=== PATIENT | female | born 1990 | race Caucasian/White ===

== ENCOUNTER 2025-04-13 04:46 | Outpatient (CLI) | payer MEDICAID, SELFPAY ==
[2025-04-13 11:34] LABS: Abs Immature Grans 0.01 10^3/uL (0.0-0.06); HCT 42.3 % (36.0-46.0); HGB 13.7 g/dL (11.2-15.7); Immature Grans % 0.2 %; MCH 28.4 pg (27.0-33.0); MCHC 32.4 % (32.0-36.0); MCV 88 fL (80-95); MPV 9.3 fL (8.0-11.0); Platelet Count 316 10^3/uL (130-400); RBC 4.82 10^6/uL (3.93-5.22); RDW 11.9 % (11.7-14.6); RDW-SD 38.2 fL; WBC 5.46 10^3/uL (4.4-10.8)
[2025-04-13 11:45] LABS: Hemoglobin A1C 5.1 % (<5.7)
[2025-04-13 12:16] LABS: ALT 25 U/L (14-59); AST 32 U/L (15-37); Albumin 4.1 g/dL (3.4-5.0); Alkaline Phosphatase 74 U/L (46-116); Anion Gap 6.4 mmol/L (3-11); BUN 21 mg/dL (7-18); Bilirubin, Total 0.6 mg/dL (0.2-1.0); CO2 32.6 mmol/L (21.0-32.0); Calcium 9.2 mg/dL (8.5-10.1); Calculated LDL 121 mg/dL (<100); Chloride 101 mmol/L (98-107); Cholesterol 212 mg/dL (<200); Estimated GFR 68.04 (mL/min/1.73m2); Glucose 85 mg/dL (74-106); HDL Cholesterol 78 mg/dL (>or=50); Potassium 4.4 mmol/L (3.5-5.1); Sodium 140 mmol/L (136-145); TSH 1.41 uIU/mL (0.36-3.74); Total Protein 7.9 g/dL (6.4-8.2); Triglyceride 68 mg/dL (<150); Vitamin D 25 Total 28 ng/mL (30-100)
[2025-04-13 19:21] LABS: HIV-1/2 Ag & Ab Screen Negative (Negative)
== END 2025-04-13 04:47 | disposition home or self-care (01) ==
LOC: LBO 04-14 04:47
PROVIDERS: PCP Nurse Practitioner Family; Visit Provider Nurse Practitioner Family
DX: R51.9 Headache, unspecified (principal); G89.29 Other chronic pain
CPT/HCPCS: 36415; 80053; 80061; 82306; 87389; 83036; 84443; 85025

== ENCOUNTER 2025-05-11 10:01 | Outpatient (REF) | payer MEDICAID, SELFPAY ==
--- NOTE | 2025-05-11 09:50 | PAPFT_PTH ---
PATIENT: Judith Reyes LOC: [facility] U#:[id number] AGE/SX: 35/F ROOM: RE05/11/[address]: Haylie Douglas NP : 1990 BED: DIS: 05/11/2025 SPEC #: [id number] RECD: 05/11/25 15:42 STATUS: SMITHA RETereso #: [id number] HARJINDER: 05/11/25 09:[address]: Stella REHMAN,Haylie DEPT: [facility] Cytology RECD BY: Meli Hodges ENTERED: 05/11/25 15:42 SP TYPE: PAPFT OTHR DR: Anisha Morales Tissues: 1 - CX/ENDOCX FOR PAP SMEARS Procedures: PAP THIN PREP/UVM Screening HPV DNA PROBE Comments: [id number] (HPV 16 & 18/45) (CHLAMYDIA/GC)
[2025-05-12 12:07] LABS: Chlamydia Result Negative (Negative); GC Result Negative (Negative)
== END 2025-05-11 10:02 | disposition home or self-care (01) ==
LOC: LBN 10:01
PROVIDERS: PCP Nurse Practitioner Family; Visit Provider Nurse Practitioner Women's Health
DX: Z12.4 Encounter for screening for malignant neoplasm of cervix (principal)
CPT/HCPCS: 87491; 87591; 88142; 87624

== ENCOUNTER 2025-05-11 10:23 | Emergency (ER) | payer MEDICAID, SELFPAY ==
[2025-05-11 10:26] VITALS: BP 156/81; PULSE 68; RESP 18; TEMP 36.8; O2SAT 98
--- NOTE | 2025-05-11 10:42 | W.ED.GENAD ---
Discharge Plan Disposition Patient Disposition: Home Condition: Stable Discharge Details Clinical Impression: Dental infection Primary Care Provider: Anisha Morales ED Provider: Andrei Frances Home Meds and New Rx's Prescriptions: New amoxicillin-pot clavulanate 875-125 mg tablet 1 tab PO BID 10 Days Qty: 20 0RF Continued Mirena 21 mcg/24hr (up to 8 yrs) 52 mg intrauterine device 1 device intrauterine ONCE Qty: 1 0RF propranolol 20 mg tablet 20 mg PO BID methadone 5 mg/5 mL solution 210 mg PO DAILY Discharge Instructions Instructions: Amoxicillin and Clavulanate, Dental Pain ED Additional Instructions: You were seen in the emergency department for your continued dental pain, please follow-up with a dentist to at least put a temporary On the exposed pulp, I am placing you on an antibiotic called Augmentin, this was sent to your pharmacy and was fill. Please continue taking your Tylenol and ibuprofen and using the chlorhexidine mouth rinse, you can also rinse with warm salt water 2-3 times per day, apply topical Anbesol, you can also research homeopathic's like cloves for dental pain, please return for inability to open or close your jaw, severe vocal changes with neck swelling. Referrals: [facility] [Provider Group] Anisha Morales [Primary Care Provider, Medicine] Discharge Data Discharge Date/Time-TO BE ENTERED AT DEPARTURE: 05/11/25 11:04 HPI General Date/Time Provider Initiated Documentation: 05/11/25 10:42. HPI Narrative: 35 year-old female presents to ED today by POV/ambulating with a chief complaint of dental infection - onset a few weeks ago, had antibiotics of Augmentin and clindamycin with onset of having throbbing pain again for the past 2 days. Quality described as throbbing, no radiation to vocal changes, trismus, drooling, neck swelling, fever, inability to swallow. Severity is described as moderate. Palliating factors include has been performing mouth rinse with chlorhexidine, took 800mg ibuprofen at 6am this morning without taking 6-hour re-dose. Provoking factors include nothing specific- poor dentition. Events leading up to the incident/Associated Symptoms: Patient has not had follow up with dentist. Patient not anticoagulated. Related Data Home Medications ?Medication ?Instructions ?Recorded ?Confirmed propranolol 20 mg tablet 20 mg PO BID 04/14/25 05/11/25 methadone 5 mg/5 mL oral solution 210 mg PO DAILY 05/05/25 05/11/25 amoxicillin 875 mg-potassium 1 tab PO BID 10 days #20 tabs 05/11/25 clavulanate 125 mg tablet levonorgestrel (Mirena) 1 device intrauterine ONCE #1 ea 05/11/25 05/11/25 Previous Rx's ?Medication ?Instructions ?Recorded amoxicillin 875 mg-potassium 1 tab PO BID 10 days #20 tabs 05/11/25 clavulanate 125 mg tablet levonorgestrel (Mirena) 1 device intrauterine ONCE #1 ea 05/11/25 Allergies Allergy/AdvReac Type Severity Reaction Status Date / Time trazodone Allergy Mild Hives Verified 05/11/25 10:32 adhesive Allergy Unknown Unknown Verified 05/11/25 10:32 General Stated Complaint: DentalOral JHONATHAN: 4 Review of Systems All systems reviewed & are unremarkable except as noted in HPI and below Exam Narrative Exam Narrative: GENERAL APPEARANCE: Well-nourished, non-toxic, awake and alert, atraumatic, no acute distress. SKIN: Warm, pink, dry, intact, without rashes/lesions/ulcerations. HEAD: Normocephalic, atraumatic, normal hair distribution for gender/age. EYES: Normal conjunctiva, no exudates on lids/lashes. ENT: Nares patent, no circumoral cyanosis, no facial swelling, severe dental decay of the lower left second molar tooth #15, exposed pulp, no visible gingival abscess, no trismus or vocal change NECK: Supple, trachea midline, painless cervical ROM. LUNGS/CHEST: Non-labored respirations, normal A/P diameter, symmetrical expansion, no chest wall deformity HEART (CV/PV): No peripheral edema, no JVD. ABDOMEN: Soft, non-distended, no guarding. MSK: Normal ROM, no swelling/deformity to bilateral UEs or LEs, moving all extremities without weakness, no cyanosis, spine midline without tenderness, normal curvature. NEURO: Mental Status AAOx4 - alert to person, place, time, events No facial droop, no forehead involvement. Motor: No focal weakness - strength 5/5 in bilateral UEs and LEs, proximal and distal, symmetric. Sensory: sensation intact to light touch globally. Gait normal: patient ambulated without ataxia into ED room. PSYCH: euthymic, cooperative, pleasant, appropriate speech Course Vital Signs Vital signs: Vital Signs Temperature 36.8 C 05/11/25 10: Pulse 68 05/11/25 10:26 Respiratory Rate 18 05/11/25 10:26 Blood Pressure 156/81 H 05/11/25 10:26 Pulse Oximetry 98 05/11/25 10:26 Temperature 36.8 C 05/11/25 10:26 Temperature Source Oral 05/11/25 10:26 Pulse 68 05/11/25 10:26 Respiratory Rate 18 05/11/25 10:26 Blood Pressure 156/81 H 05/11/25 10:26 Pulse Oximetry 98 05/11/25 10:26 Oxygen Delivery Method Room Air 05/11/25 10: Oxygen Flow Rate 0 05/11/25 10:26 Pain Level 8 05/11/25 10:26 Medical Decision Making This dictation utilizes [id number] dictation software and may contain unedited grammatical errors. 35 year-old female presents to ED today by POV/ambulating with a chief complaint of dental infection - onset a few weeks ago, had antibiotics of Augmentin and clindamycin with onset of having throbbing pain again for the past 2 days. Quality described as throbbing, no radiation to vocal changes, trismus, drooling, neck swelling, fever, inability to swallow. Severity is described as moderate. Palliating factors include has been performing mouth rinse with chlorhexidine, took 800mg ibuprofen at 6am this morning without taking 6-hour re-dose. Provoking factors include nothing specific- poor dentition. Events leading up to the incident/Associated Symptoms: Patient has not had follow up with dentist. Patients' medical history: History of narcotic drug use. Family and social history: Noncontributory. Pertinent exam findings / vital signs include severe dental decay of the lower left second molar tooth #15, exposed pulp, no visible gingival abscess, no trismus or vocal changes. Differential / pathologies of concern include dental infection. Diagnostic studies of: - None. Interventions of: - 1 dose 10 mg oxycodone, restarted on Rx for Augmentin. ED Course/Assessment/Plan: 35-year-old female with diffuse poor dentition and history of dental infection recently presents with severe decay cavity of tooth #15, no visible gingival abscess or signs of deep space infection, counseled to follow-up with dentist for possible temporary Before she can be seen by oral surgery, restarted on antibiotics and counseled on homeopathic remedies like close as well as topical Anbesol, therapeutic dosing schedule of Tylenol and ibuprofen as needed, salt water gargles and using chlorhexidine. Findings not consistent with deep space infection, Jovon's angina. Disposition of dental infection. Patient verbalized understanding of the plan and return to ED criteria and engaged in shared decision making. Medical Records Medical records reviewed: Yes I reviewed the patient's medical records. PFSH All Active Problems (Updated 05/14/25 @ 00:02 by MARINA WALKER) Dental infection (Acute) High blood pressure (Chronic) Depression with anxiety (Acute) Irregular periods (Acute) Narcotic drug use (Acute) Scoliosis of lumbar spine (Acute) Sleep disorder (Acute) Heart murmur (Acute) PTSD (post-traumatic stress disorder) (Acute) Medical History (Updated 05/14/25 @ 00:02 by MARINA WALKER) IUD surveillance (05/11/25) Mirena Surgical History (Updated 04/14/25 @ 15:22 by Anais Chapin) H/O reduction mammoplasty Family History (Updated 04/14/25 @ 15:28 by Anais Chapin) Mother Heart disease Father Depression Anxiety Substance use disorder Social History (Updated 05/05/25 @ 10:17 by Haylie Douglas NP) Smoking/Tobacco Use Status: Never Second Hand Exposure: No Smoking risk assessment performed?: Yes Alcohol Intake: never Drug use: Daily Substance use type: marijuana and other Details: Current MAT for previous narcotic use Household members: significant other Sexually active: Yes Do you think of yourself as: straight/heterosexual Current gender identity: female What is your relationship status?: living with partner Panel score (0-1 are the most socially isolated patients): 1 What type of physical activity do you participate in: regular exercise Frequency: 3-4 times per week Do you feel safe at home: Yes Female Reproductive History Menstrual Age of Menarche: 11 Duration of menses: 6-7 days control method: progestin IUCD History History 0 Para Hx # Term Pregnancies Multiple births Hx # Pregnancies Ectopic pregnancies AB induced Hx Number of Living Children AB spontaneous
[2025-05-11] MEDS: oxyCODONE 10 MG TAB PO (11:01)
== END 2025-05-11 11:04 | disposition home or self-care (01) ==
PROVIDERS: Emergency Provider Physician Assistant; PCP Nurse Practitioner Family
DX: K08.89 Other specified disorders of teeth and supporting structures (principal); K04.7 Periapical abscess without sinus
CPT/HCPCS: 99283

== ENCOUNTER 2025-07-06 07:11 | Emergency (ER) | payer MEDICAID, SELFPAY ==
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
== END 2025-07-06 07:29 ==
LOC: ER 07:22
PROVIDERS: Emergency Provider Emergency Medicine; PCP Nurse Practitioner Family
DX: Z53.21 Procedure and treatment not carried out due to patient leaving prior to being seen by health care provider (principal)

== ENCOUNTER 2025-07-09 07:04 | Emergency (ER) | payer MEDICAID, SELFPAY ==
--- NOTE | 2025-07-09 07:15 | DI.RAD_ITS ---
Exam(s) XR TIB/FIB RT EXAM: XR TIB/FIB RT CLINICAL HISTORY: Right calf pain. TECHNIQUE: 2D digital imaging was performed. COMPARISON: No exams were available for comparison FINDINGS: 3 views No evidence of acute fracture of the tibia and fibula. There is a triangular osteophytic density just medial to the tip of the lateral malleolus which appears corticated and is probably an accessory ossicle. There is no significant overlying soft tissue swelling at this level nor elsewhere in the ankle region. Bone density is normal. No osseous lesions. IMPRESSION: No acute osseous findings. DATA REPOSITORY: RADIATION DOSE DELIVERED:
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
[2025-07-09 07:17] VITALS: BP 124/62; PULSE 57; RESP 20; TEMP 36.3; O2SAT 98
[2025-07-09] MEDS: Diph,Pertuss(Acell),Tet Vac/Pf 0.5 ML SYR IM (07:40)
[2025-07-09] MEDS: Acetaminophen 500 MG TAB 1000 MG PO (07:40)
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
[2025-07-09 09:19] VITALS: BP 107/52; PULSE 52; RESP 18; O2SAT 100
[2025-07-09 09:58] VITALS: BP 101/60; PULSE 50; RESP 16; O2SAT 100
== END 2025-07-09 09:58 | disposition home or self-care (01) ==
PROVIDERS: Emergency Provider Emergency Medicine; PCP Nurse Practitioner Family
DX: M54.50 Low back pain, unspecified (principal); S06.9X1A Unspecified intracranial injury with loss of consciousness of 30 minutes or less, initial encounter; V49.9XXA Car occupant (driver) (passenger) injured in unspecified traffic accident, initial encounter; S80.11XA Contusion of right lower leg, initial encounter
CPT/HCPCS: 99284 ×2; 81025; 90471; 90715; 72100; 72128; 72131; 73590